=== PATIENT | female | born 2000 | race Two or more races ===

== ENCOUNTER 2024-10-11 15:00 | Emergency (ER) | payer BC, MEDICAID ==
[~2024-10-11] VITALS: Ht 149.9 cm; Wt 43.7 kg
[2024-10-11] MEDS: LORazepam 0.5 MG TAB PO ONE (16:06)
--- NOTE | 2024-10-11 16:07 | ED.PDOC ---
Psychiatric HPI Comments This is a 24 year old female presenting to the ED with chief complaint of anxiety attack. Patient reports that she suffered an anxiety attack today while at work, sending her to the ED to be evaluated. Patient relays that she has been experiencing constant panic attacks for the past month with associated poor appetite, nausea, vomiting, palpitations, and inability to sleep. Patient states she has lost about 20 lbs over the past month and her hair has been falling out for unknown reasons. Patient notes she has taken multiple tests with no positive results. Patient reports she has no history of diagnosed anxiety in the past. LMP was 5 days ago and she is not on any control. Patient denies any abdominal pain, fever, chills, chest pain, SOB, headache, dizziness, SI, HI, or stressors. 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 Family History Family History: Reviewed,noncontributory to illness Social History Smoker: Other (Vapes) Alcohol: Denies ETOH Use Drugs: Denies Drug Use Lives In: Home Constitutional: denies: chills, diaphoresis, fatigue, fever, malaise, sweats, weakness, others EENTM: denies: blurred vision, double vision, ear bleeding, ear discharge, ear drainage, ear pain, ear ringing, eye pain, eye redness, hearing loss, mouth pain, mouth swelling, nasal discharge, nose bleeding, nose congestion, nose pain, photophobia, tearing, throat pain, throat swelling, voice changes, others Respiratory: denies: cough, hemoptysis, orthopnea, SOB at rest, shortness of breath, SOB with excertion, stridor, wheezing, others Cardiovascular: reports: palpitations; denies: chest pain, dizzy spells, diaphoresis, Dyspnea on exertion, edema, irregular heart beat, left arm pain, lightheadedness, PND, syncope, others Gastrointestinal: reports: nausea, vomiting; denies: abdomen distended, abdominal pain, blood streaked bowels, constipated, diarrhea, dysphagia, difficulty swallowing, hematemesis, melena, poor appetite, poor fluid intake, rectal bleeding, rectal pain, others Genitourinary: denies: abnormal vagina bleeding, burning, dyspareunia, dysuria, flank pain, frequency, hematuria, incontinence, pain, , vagina discharge, urgency, others Neurological: denies: dizziness, fainting, headache, left sided numbness, left sided weakness, numbness, paresthesia, pre-existing deficit, right sided numbness, right sided weakness, seizure, speech problems, tingling, tremors, weakness, others Musculoskeletal: denies: back pain, gout, joint pain, joint swelling, muscle pain, muscle stiffness, neck pain, others Integumetry: reports: change in hair/nails (Hair loss); denies: bruises, change in color, dryness, laceration, lesions, lumps, rash, wounds, others Allergic/Immunocompromised: denies: Difficulty Healing, Frequent Infections, Hives, Itching, others Hematologic/Lymphatic: denies: anemia, blood clots, easy bleeding, easy bruising, swollen glands, others Endocrine: reports: unexplained weight loss; denies: excessive hunger, excessive sweating, excessive thirst, excessive urination, flushing, intolerance to cold, intolerance to heat, unexplained weight gain, others Psychiatric: reports: anxiety, sleepless; denies: bipolar disorder, depression, hopeless, panic disorder, schizophrenia, suicidal, others All Other Systems: Reviewed and Negative Physical Exam General Appearance: No Apparent Distress, Normal HEENT: Normal ENT Inspection, Pharynx Normal, TMs Normal Neck: Full Range of Motion, Non-Tender, Normal, Normal Inspection Respiratory: Chest Non-Tender, Lungs Clear, No Accessory Muscle Use, No Respiratory Distress, Normal Breath Sounds Cardiovascular: No Edema, No JVD, No Murmur, No Gallop, Normal Peripheral Pulses, Regular Rate/Rhythm Breast Exam: Deferred Gastrointestinal: No Organomegaly, Non Tender, No Pulsatile Mass, Normal Bowel Sounds, Soft Genitalia: Deferred Pelvic: Deferred Rectal: Deferred Extremities: No calf tenderness, Normal capillary refill, Normal inspection, No rmal range of motion, Non-tender, No pedal edema Musculoskeletal : Apperance: Normal Neurologic: Alert, 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 Was a procedure done?: No Psych Differential Dx Intoxication Differential Dx: CVA, Depression, Electrolyte Imbalance X-Ray, Labs, Meds, VS Vital Signs Date Time Temp Pulse Resp B/P (MAP) Pulse Ox O2 Delivery O2 Flow Rate FiO2 10/11/24 19:06 62 16 97 Room Air 10/11/24 19:06 97.7 64 18 115/68 (84) 97 97.7 10/11/24 16:01 101 10/11/24 15:02 97.8 11 18 126/83 100 97.8 Lab Test 10/11/24 16:26 10/11/24 15:58 Range/Units White Blood Count 7.3 4.4-10.8 10^3/uL Red Blood Count 4.47 4.0-5.20 10^6/uL Hemoglobin 14.5 12.2-16.2 g/dL Hematocrit 41.6 36.0-46.0 % Mean Corpuscular Volume 92.9 80.0-100.0 fL Mean Corpuscular Hemoglobin 32.4 H 28.0-32.0 pg Mean Corpuscular Hemoglobin Concent 34.9 32.0-36.0 g/dL Red Cell Distribution Width 12.7 11.8-14.3 % Platelet Count 333 140-450 10^3/uL Mean Platelet Volume 6.6 L 6.9-10.8 fL Neutrophils (%) (Auto) 78.1 37.0-80.0 % Lymphocytes (%) (Auto) 16.1 10.0-50.0 % Monocytes (%) (Auto) 5.0 0.0-12.0 % Eosinophils (%) (Auto) 0.3 0.0-7.0 % Basophils (%) (Auto) 0.5 0.0-2.0 % Neutrophils # (Auto) 5.7 1.6-8.6 10 ^3/uL Lymphocytes # (Auto) 1.2 0.4-5.4 10 ^3/uL Monocytes # (Auto) 0.4 0-1.3 10 ^3/uL Eosinophils # (Auto) 0 0-0.8 10 ^3/uL Basophils # (Auto) 0 0-0.2 10 ^3/uL Nucleated Red Blood Cells 0.1 % Sodium Level 141 136-145 mmol/L Potassium Level 3.6 3.5-5.1 mmol/L Chloride Level 103 98-107 mmol/L Carbon Dioxide Level 25 20-31 mmol/L Anion Gap 13 5-15 Blood Urea Nitrogen 7 L 9-23 mg/dL Creatinine 0.82 0.550-1.02 mg/dL Glomerular Filtration Rate Calc 103 >90 mL/min BUN/Creatinine Ratio 8.5 L 10.0-20.0 Serum Glucose 102 74-106 mg/dL Calcium Level 10.0 8.7-10.4 mg/dL Urine Color Light-brown Yellow Urine Clarity Ex.turbid Clear Urine pH 6.0 5.0-9.0 Urine Specific [place] 1.006 1.001-1.035 Urine Protein Trace H Negative Urine Ketones Negative Negative Urine Blood 3+ H Negative /uL Urine Nitrite Negative Negative Urine Bilirubin Negative Negative Urine Urobilinogen Normal Negative mg/dL Urine Leukocyte Esterase 2+ Negative /uL Urine RBC 9 0 - 4 /hpf Urine WBC Clumps Present None Seen /hpf Urine Microscopic WBC 58 H 0-5 /HPF Urine Squamous Epithelial Cells Many <5 /hpf Urine Bacteria None seen None Seen /hpf Urine Glucose Normal Normal mg/dL Urine Test Negative Negative Current Medications Medications (Trade) Dose Ordered Sig/Unique Route Start Time Stop Time Status Last Admin Lorazepam (Ativan Tablet) 1 mg ONCE ONCE PO 10/11/24 16:00 10/11/24 16:01 DC 10/11/24 16:06 Ceftriaxone Sodium 50 ml @ 100 mls/hr ONCE ONCE IV 10/11/24 18:15 10/11/24 18:44 DC 10/11/24 18:44 Ondansetron HCl (Zofran Po) 4 mg ONCE ONCE PO 10/11/24 18:15 10/11/24 18:16 DC 10/11/24 18:26 PATIENT: PATRICIA HUYNH ACCT: [id number] UNIT: [id number] : 2000 LOC: ER ROOM / BED: / AGE / SEX: 24 / F ADM STATUS: REG ER SERVICE [id number] ORDERING PHYSICIAN: FIONA DIAZ NP PROCEDURE(s): CXR2 - CHEST TWO VIEWS ROUTINE REASON: R/o serious pathology ORDER NUMBER(s): [id number], ACCESSION NUMBER(s): [id number] XY CHEST TWO VIEWS ROUTINE CLINICAL HISTORY: R/o serious pathology COMPARISON: None TECHNIQUE: Frontal and lateral view of the chest was obtained FINDINGS: Lines and Tubes: Sternal wire sutures in place. Lungs: No focal consolidation. Pleura: No effusion. No pneumothorax. Cardiomediastinal contours: Unremarkable Bones: No acute osseous abnormality. IMPRESSION: 1. No acute cardiopulmonary disease. ATED BY: GUIDO WATKINS Jr., DO DICTATED DATE/TIME: 10/11/241850 SIGNED BY: GUIDO WATKINS Jr., SIGNED DATE/TIME: 10/11/241850 CC: X-Ray, Labs, Meds, VS Comment Patient arrives alert and oriented, ABC's intact, afebrile, vital signs stable, saturating well in room air Peripheral IV insertion+ labs were ordered. CBC was ordered to exclude anemia, blood loss, or infection. BMP was ordered to exclude electrolyte abnormalities, renal failure, dehydration, hyperglycemia Urinalysis was ordered to rule out UTI or hematuria. urine was ordered to rule out . EKG was ordered. Diagnostic imaging ordered by me and results interpreted by radiology : Chest XR Labs in the ED showed + UTI Patient was given: Ativan 1mg PO. Tolerated medications with no adverse reaction. Additional MDM Review of External, Non-ED records: External records reviewed. Discussion with independent historian (EMS, family) history obtained from the patient/parents (if applicable) at bedside Chronic conditions affecting care: None Social determinants of health affecting care: None Consideration of admission (observation or admission): I considered escalation of care to admission for this patient, however given the reassuring workup, the patient is safe for outpatient management. Discussion with the Radiology: No 12 lead EKG interpretation: Images Reviewed?: Images reviewed and evaluated by me Time of 1ST Reevaluation: 16:54 Reevaluation 1ST: Unchanged Time of 2ND Reevaluation: 19:00 Reevaluation 2ND: Improved Patient Education/Counseling: Diagnosis, Treatment Family Education/Counseling: No Family Present Departure 1 Departure Time of Disposition: 19:01 Impression: Primary Impression: Anxiety Additional Impression: UTI (urinary tract infection) Qualified Codes: N30.00 - Acute cystitis without hematuria Disposition: 01 HOME / SELF CARE / HOMELESS Condition: Fair e-Prescriptions Nitrofurantoin Monohydrate Mac (Macrobid) 100 Mg Cap 100 MG PO BID for 7 Days, #14 CAP 0 Refills Prov: FIONA DIAZ NP 10/11/24 Hydroxyzine Hcl (Hydroxyzine Hcl) 25 Mg Tab 1 TAB PO TIDPRN PRN for 10 Days, #30 TAB 0 Refills Prov: FIONA DIAZ NP 10/11/24 Critical Care Note Critical Care Time?: No Stability Stability form required: No Heart Score Heart Score: Heart Score Response (Comments) Value History Slightly Suspicious 0 EKG Normal 0 Age <45 0 Risk Factors No known risk factors 0 Troponin Normal limit 0 Total 0 I personally scribed for FIONA DIAZ NP ([email or web address]) on 10/11/24 at 16:06. Electronically submitted by Mario Alberto Tucker ([email or web address]). FIONA DIAZ NP Oct 11, 2024 16:06 MANDIE CHEUNG Oct 11, 2024 19:03
[2024-10-11 16:41] LABS: Hematocrit 41.6 % (36.0-46.0); Hemoglobin 14.5 g/dL (12.2-16.2); Mean Corpuscular Hemoglobin 32.4 pg (28.0-32.0); Mean Corpuscular Volume 92.9 fL (80.0-100.0); Nucleated Red Blood Cells % 0.1 %
[2024-10-11 16:48] LABS: Chloride 103 mmol/L (98-107); Potassium 3.6 mmol/L (3.5-5.1); Sodium 141 mmol/L (136-145)
[2024-10-11 16:49] LABS: Anion Gap 13 (5-15); Carbon Dioxide 25 mmol/L (20-31)
[2024-10-11 16:50] LABS: Calcium 10.0 mg/dL (8.7-10.4)
[2024-10-11 16:54] LABS: BUN/Creatinine Ratio 8.5 (10.0-20.0); Glucose 102 mg/dL (74-106)
[2024-10-11 16:55] LABS: Blood Urea Nitrogen 7 mg/dL (9-23)
[2024-10-11 17:53] LABS: Urine Protein, UAD TRACE (Negative); Urine WBC Clumps PRESENT /hpf (None Seen)
[2024-10-11] MEDS ORDERED: NITR-87 PO (18:10)
[2024-10-11] MEDS ORDERED: HYDR-3682 PO (18:10)
[2024-10-11] MEDS: ONDANSETRON ODT 4 MG TAB PO ONE (18:26)
[2024-10-11] MEDS: cefTRIAXone 1GM/50ML D5W 50 ML IV ONE (18:44)
--- NOTE | 2024-10-11 18:53 | DVH ---
XY CHEST TWO VIEWS ROUTINE CLINICAL HISTORY: R/o serious pathology COMPARISON: None TECHNIQUE: Frontal and lateral view of the chest was obtained FINDINGS: Lines and Tubes: Sternal wire sutures in place. Lungs: No focal consolidation. Pleura: No effusion. No pneumothorax. Cardiomediastinal contours: Unremarkable Bones: No acute osseous abnormality. IMPRESSION: 1. No acute cardiopulmonary disease.
[2024-10-11 19:32] VITALS: BP 120/80; PULSE 89; RESP 16; TEMP 98.7; O2SAT 100
--- NOTE | 2024-10-12 10:56 | ECG ---
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
== END 2024-10-11 19:32 | disposition home or self-care (01) ==
LOC: ER 15:00
DX: F41.9 Anxiety disorder, unspecified (principal); N39.0 Urinary tract infection, site not specified; F17.290 Nicotine dependence, other tobacco product, uncomplicated
CPT/HCPCS: 36415; 71046; 80048; 81001; 81025; 85025; 93005; 96365; 99285; J0696; Q0162